=== PATIENT | female | born 1990 | race African-American/Black ===

== ENCOUNTER 2016-10-04 19:55 | Emergency (ER) | payer OTHER ==
[~2016-10-04] VITALS: Ht 160 cm; Wt 74.5 kg
[2016-10-04] MEDS ORDERED: IPRATROPIUM BROMIDE 0.5 MG/2.5 ML NEB SOLUTION NEB ONE (20:15)
[2016-10-04] MEDS ORDERED: ALBUTEROL SULFATE 5 MG/ML 20 ML NEB SOLN [BULK] NEB ONE (20:15)
[2016-10-04] MEDS ORDERED: PredniSONE 20 MG TABLET PO ONE (23:30)
[2016-10-04] MEDS ORDERED: ALBUTEROL SULFATE HFA 90 MCG/PUFF 8 GM INHALER IH ONE (23:30)
[2016-10-04 23:53] VITALS: BP 124/84
== END 2016-10-04 23:54 | disposition home or self-care (01) ==
LOC: EMS 19:56
DX: J45.909 Unspecified asthma, uncomplicated (principal)
CPT/HCPCS: 94644; 99285; J7512; J7611; J3535

== ENCOUNTER 2016-10-24 10:11 | Emergency (ER) | payer OTHER ==
[~2016-10-24] VITALS: Ht 160 cm; Wt 74.5 kg
[2016-10-24 12:21] VITALS: BP 122/77
== END 2016-10-24 12:23 | disposition home or self-care (01) ==
LOC: EMS 10:14
DX: R10.9 Unspecified abdominal pain (principal); J45.909 Unspecified asthma, uncomplicated
CPT/HCPCS: 99283

== ENCOUNTER 2016-12-03 12:26 | Emergency (ER) | payer OTHER ==
[~2016-12-03] VITALS: Ht 160 cm; Wt 74.5 kg
[2016-12-03 13:24] LABS: APPEARANCE,URINE CLEAR (CLEAR); GLUCOSE, URINE (UA) NEGATIVE (NEGATIVE); KETONES,URINE NEGATIVE (NEGATIVE); LEUKOCYTE ESTERASE ,URINE NEGATIVE (NEGATIVE); OCCULT BLOOD,URINE NEGATIVE (NEGATIVE); PH,URINE 6.5 (5.0-8.0); PROTEIN,URINE NEGATIVE (NEGATIVE)
[2016-12-03 13:31] LABS: ADD UA MICROSCOPIC NO
[2016-12-03 15:14] LABS: BASOPHILS % (AUTO) 0.9 % (0.0-2.0); EOSINOPHILS % (AUTO) 8.4 % (1.0-6.0); HEMOGLOBIN 14.2 g/dL (12.0-16.0); LYMPHOCYTES % (AUTO) 29.2 % (22.0-44.0); MEAN CORPUSCULAR HGB CONC 31.6 G/dL (31.0-37.0); MEAN CORPUSCULAR VOLUME 85 fL (80-100); MONOCYTES # (AUTO) 0.6 K/uL (0.1-1.0); MONOCYTES % (AUTO) 9.2 % (2.0-9.0); NEUTROPHILS # (AUTO) 3.7 K/uL (1.8-7.7); NEUTROPHILS % (AUTO) 52.3 % (40.0-70.0); PLATELET COUNT (AUTO) 269 K/uL (150-450); RED BLOOD CELL COUNT(AUTO) 5.27 MIL/uL (4.00-5.20); RED CELL DISTRIBUTION WIDTH 16.9 % (11.5-14.5)
[2016-12-03 16:00] VITALS: BP 121/81
== END 2016-12-03 16:31 | disposition home or self-care (01) ==
LOC: EMS 12:28
DX: Z32.01 Encounter for pregnancy test, result positive (principal); R10.2 Pelvic and perineal pain; J45.909 Unspecified asthma, uncomplicated
CPT/HCPCS: 76801; 99285